=== PATIENT | female | born 1960 ===

== ENCOUNTER 2024-04-13 19:02 | Emergency (ER) | payer OTHER, SELFPAY ==
[2024-04-13] VITALS (16 sets, daily range): BP systolic 132–155; BP diastolic 49–96; PULSE 71–87; RESP 13–22; TEMP 36.2; O2SAT 94–100; BMI 49.7
--- NOTE | 2024-04-13 19:14 | CRLHL7_ITS ---
For Patients: As a result of the Century Cures Act, medical imaging exams and procedure reports are released immediately into your electronic medical record. You may view this report before your referring provider. If you have questions, please contact your health care provider. Indication: Trauma. Technique: Right knee, 2 views. Comparison: None. Findings/Impression: Bones: Alignment is normal. No displaced fractures or bone lesions. Joint spaces: Tricompartmental degenerative changes with narrowing of the medial femorotibial compartment. Soft tissues: Unremarkable. Dictated by Yonny Willis MD @ 04/13/2024 8:29:58 PM (Electronically Signed)
--- NOTE | 2024-04-13 19:14 | CRLHL7_ITS ---
For Patients: As a result of the Century Cures Act, medical imaging exams and procedure reports are released immediately into your electronic medical record. You may view this report before your referring provider. If you have questions, please contact your health care provider. INDICATION: Fall, deformity. TECHNIQUE: Right wrist 2 view. COMPARISON: None. FINDINGS: There is an acute comminuted impacted intra-articular fracture of the distal radius. Fracture fragments are mildly displaced with dorsal tilt of the radial articular surface. Radiocarpal alignment appears maintained without dislocation. Soft tissue swelling about the wrist. IMPRESSION: Acute comminuted impacted intra-articular fracture of the distal radius. Dictated by Marianne Carlos MD @ 04/13/2024 8:38:42 PM (Electronically Signed)
--- NOTE | 2024-04-13 19:35 | ED_ITS ---
HPI - General Adult General Date Seen: 04/13/24 Chief complaint: Extremity Pain/Injury, Upper Stated complaint: Fall, R arm injury Time Seen by Provider: 04/13/24 19:22 History of Present Illness HPI narrative: Pleasant 63-year-old female with history of arthritis in her knees, hypertension, but otherwise healthy she presents to the ER today by private car with her family for evaluation of injuries after she had a mechanical trip and fall. She was walking in a parking lot when she tripped over a speed bump and fell forward. She landed on her right knee and suffered an abrasion and bruise there and caught most of her weight on her outstretched right hand. She has a lot of right wrist pain and has a dorsal deformity. She has not hit her head. No loss of consciousness. No headache. No neck pain. No left-sided symptoms. No pain other than her right wrist and right knee. She is not anticoagulated. She does have significant swelling and deformity of her right wrist and she is concerned it is broken. She also has a little bit of evolving tingling in her the right middle finger (i.e. median nerve distribution). No pain in her elbow or shoulder. No rib pain or chest pain. No abdominal pain. No back pain. Related Data Home Medications ?Medication ?Instructions ?Recorded ?Confirmed furosemide PO DAILY 04/13/24 metoprolol succinate PO DAILY 04/13/24 Allergies Allergy/AdvReac Type Severity Reaction Status Date / Time morphine Allergy Intermediate itching Verified 04/13/24 19:15 amoxicillin [From Augmentin] AdvReac Intermediate Vomiting Verified 04/13/24 19:15 clavulanic acid AdvReac Intermediate Vomiting Verified 04/13/24 19:15 [From Augmentin] [facility] Social History Smoking Status: Never smoker How often do you have a drink containing alcohol: never AUDIT-C Alcohol total score: 0 Non-prescribed substance use: marijuana (any form) Exam Narrative: Exam Narrative: Constitutional: Appears well-developed and well-nourished. Alert. Conversant. Non toxic. HENT: Head: Atraumatic. No depressed skull fracture, Raccoon Eyes, Turner's sign, or hemotympanum. Face normal. TMs normal Nose: Nose normal. Mouth/Throat: Oral mucosa is clear and moist. no trismus. Pharynx normal. Tonsils symmetric. No tonsillar enlargement, erythema, or exudate. Eyes: Conjunctivae normal. EOM normal. Pupils equal, round, and reactive to light. No scleral icterus. Neck: Normal range of motion. Neck supple. No tracheal deviation present. Cardiovascular: Normal rate, regular rhythm. No gallop. No friction rub. No murmur heard. Symmetric radial artery pulses Pulmonary/Chest: Effort normal. No stridor. No respiratory distress. No wheezes. No rales. No rhonchi . No tenderness. Abdominal: Soft. Bowel sounds normal. No distension. No mass. No tenderness. No rebound. No guarding. Musculoskeletal: RUE: Clavicle, shoulder, proximal humerus, biceps, triceps, distal humerus are nontender. Elbow nontender. Proximal forearm nontender. She is guarding her right wrist and distal forearm where there is swelling and suggestive of a dorsal deformity. Range of motion and there forearm is limited by pain. Not able to flex or extend her elbow due to pain. Intact radial and ulnar an nerve motor and sensory function. She is able to slightly flex and extend her fingers. Subjective paresthesias her just starting to develop in her right middle finger (suspicious for possible median nerve neurapraxia) LUE: Normal range of motion. No tenderness. No deformity Pelvis is stable. Hips are nontender. RLE: Abrasion with swelling and ecchymosis over the right anterior knee. She is able to flex to about 90? and extend to almost complete extension. No crepitus. No deformity. Anterior knee tenderness. The femur and quadriceps and hamstring are nontender. Lower leg, ankle and foot are nontender. LLE: Normal range of motion. No edema. No tenderness. No deformity Lymph: No cervical adenopathy. Neurological: Alert and oriented to person, place, and time. Normal strength. CN II-VII intact. No sensory deficit. GCS eye subscore is 4. GCS verbal subscore is 5. GCS motor subscore is 6. Normal coordination Skin: Skin is warm and dry. No rash noted. No pallor. Normal capillary refill. Psychiatric: Normal mood. Normal affect. Const: Vital Signs, click to edit/add: Vital Signs - 24 hr 04/13/24 19:16 04/13/24 21:19 04/13/24 21:30 Temperature 97.1 F L Pulse Rate 75 75 Pulse Rate [Pulse Oximeter] 87 Respiratory Rate 18 Blood Pressure Blood Pressure [Le ft Forearm] 155/92 H Pulse Oximetry 95 96 94 Oxygen Delivery Me thod Room Air Oxygen Flow Rate 04/13/24 21:32 04/13/24 21:45 04/13/24 21:52 Temperature Pulse Rate 72 71 75 Pulse Rate [Pulse Oximeter] Respiratory Rate 13 Blood Pressure 132/49 L 144/79 H Blood Pressure [Le ft Forearm] Pulse Oximetry 94 94 97 Oxygen Delivery Me thod Oxygen Flow Rate 04/13/24 21:57 04/13/24 22:00 04/13/24 22:00 Temperature Pulse Rate 76 77 Pulse Rate [Pulse Oximeter] Respiratory Rate 16 16 Blood Pressure 147/68 H Blood Pressure [Le ft Forearm] Pulse Oximetry 98 98 Oxygen Delivery Me thod Nasal Cannula Oxygen Flow Rate 1 04/13/24 22:02 04/13/24 22:15 04/13/24 22:20 Temperature Pulse Rate 80 81 75 Pulse Rate [Pulse Oximeter] Respiratory Rate 13 17 22 Blood Pressure 136/72 Blood Pressure [Le ft Forearm] Pulse Oximetry 100 100 98 Oxygen Delivery Me thod Oxygen Flow Rate 04/13/24 22:24 04/13/24 22:27 04/13/24 22:30 Temperature Pulse Rate 75 78 73 Pulse Rate [Pulse Oximeter] Respiratory Rate 21 Blood Pressure 143/86 H 139/75 Blood Pressure [Le ft Forearm] Pulse Oximetry 99 96 96 Oxygen Delivery Me thod Oxygen Flow Rate 04/13/24 22:32 04/13/24 22:45 Temperature Pulse Rate 77 76 Pulse Rate [Pulse Oximeter] Respiratory Rate Blood Pressure 144/96 H Blood Pressure [Le ft Forearm] Pulse Oximetry 99 97 Oxygen Delivery Me thod Oxygen Flow Rate Course Vital Signs Vital signs: Initial Vital Signs Temperature 97.1 F L 04/13/24 19:16 Temperature Source Temporal Artery Scan 04/13/24 19:16 Pulse Rate 87 04/13/24 19:16 Respiratory Rate 18 04/13/24 19:16 Blood Pressure 155/92 H 04/13/24 19:16 Blood Pressure Mean 113 H 04/13/24 19:16 Blood Pressure Position Sitting 04/13/24 19:16 Pulse Oximetry 95 04/13/24 19:16 Oxygen Delivery Method Room Air 04/13/24 19:16 Vital Signs Temperature 97.1 F L 04/13/24 19:16 Pulse Rate 87 04/13/24 19:16 Respiratory Rate 18 04/13/24 19:16 Blood Pressure 155/92 H 04/13/24 19:16 Pulse Oximetry 95 04/13/24 19:16 Oxygen Delivery Method Room Air 04/13/24 19:16 Temperature 97.1 F L 04/13/24 19:16 Pulse Rate 76 04/13/24 22:45 Respiratory Rate 21 04/13/24 22:24 Blood Pressure 144/96 H 04/13/24 22:32 Pulse Oximetry 97 04/13/24 22:45 Oxygen Delivery Method Nasal Cannula 04/13/24 22:00 Oxygen Flow Rate 1 04/13/24 22:00 Medications Administered Medications: Discontinued Medications Generic Name Dose Route Start Last Admin Trade Name Franciscoq PRN Reason Stop Dose Admin Ketorolac Tromethamine 15 mg 04/13/24 19:39 04/13/24 20:02 Ketorolac 15 Mg/Ml Inj IVP 04/13/24 19:40 15 mg ONCE ONE Administration Ondansetron HCl 4 mg 04/13/24 20:33 04/13/24 20:40 Ondansetron 2 Mg/Ml Inj IVP 04/13/24 20:34 4 mg ONCE ONE Administration Medical Decision Making MDM Narrative Medical decision making narrative: Very pleasant 63-year-old female presenting to the ER today with her for evaluation of right wrist pain after mechanical trip and fall that occurred this evening. She also has some bruising and abrasion to her right knee. No other injuries from the fall. X-rays of the right knee are negative for any fracture dislocation. Exam is consistent with contusion and abrasion. Exam and x-rays of the right wrist confirm a comminuted, impacted, intra- articular fracture of the distal radius with about 30? of dorsal angulation. Associated with this she had tingling paresthesias in the middle finger suggesting a median nerve neurapraxia. Discussed with Orthopedics. They reviewed the images and the clinical presentation. Concern is that with a comminuted intra-articular fracture like this she will probably require ORIF. That cannot be done tonight. Orthopedics recommends that we perform procedural sedation for closed reduction should try to reduce the tension on the median nerve to resolve the paresthesia. If successful patient can follow-up in clinic tomorrow for recheck. As above sedation and reduction were performed with good improvement in alignment. She had temper hypoxia during the sedation but no other complication. No aspiration. No hypotension. She recovered well post sedation and is now feeling better. With improved alignment of the fracture fragments, the median nerve paresthesias have resolved. She is wiggling her fingers and has no ongoing numbness. Good distal cap refill. She is placed into a dorsal slab short-arm splint. Sling applied. She will follow-up tomorrow with the [facility] ortho clinic. Discussed fracture care, rest, ice, elevation. Discussed splint care keeping it dry, keeping it on. Precautions for return to the ER reviewed with any signs of worsening or uncontrolled pain, numbness or pallor in her fingers, getting the splint wet, displacement, or other concerns. She has significant side effects from all opiate analgesics so cannot have opiates. She has done well with tramadol in the past. Prescription for tramadol through [facility]-15 tablets. Imaging Data XR right wrist: Attestation: I have reviewed the pertinent imaging results. My impression: Dr. Gonzalez-acute comminuted, impacted distal radius fracture with intra- articular involvement. About 30? of dorsal angulation. Radiologist's impression: FINDINGS: There is an acute comminuted impacted intra-articular fracture of the distal radius. Fracture fragments are mildly displaced with dorsal tilt of the radial articular surface. Radiocarpal alignment appears maintained without dislocation. Soft tissue swelling about the wrist. IMPRESSION: Acute comminuted impacted intra-articular fracture of the distal radius. XR right knee: Attestation: I have reviewed the pertinent imaging results. My impression: Dr. Gonzalez-no fracture Radiologist's impression: Findings/Impression: Bones: Alignment is normal. No displaced fractures or bone lesions. Joint spaces: Tricompartmental degenerative changes with narrowing of the medial femorotibial compartment. Soft tissues: Unremarkable. X-ray right wrist post reduction: Attestation: I have reviewed the pertinent imaging results. My impression: Improved alignment and angulation of the fracture fragments of the distal radius. Discharge Plan Discharge Clinical Impression: Fracture of wrist Patient Disposition: Home, Self-Care Condition: Stable Instructions: Wrist Fracture in Adults (ED) Additional Instructions: Please follow up with the [facility] Orthopedic Clinic. You should receive a phone call from the orthopedic clinic tomorrow morning. If you do not receive a phone call by mid morning, call [phone] to arrange a follow-up visit. Keep your splint on and keep her splint dry until you see Ortho. Wear the sling when you are up and around keep your arm elevated at the level of your heart. Take the sling off on your sleeping. Keep your arm elevated on a pillow. Apply ice your broken wrist with an ice pack for 15 minutes every 3-4 hours. If you have worsening or uncontrolled pain, numbness or tingling in your hand pallor or duskiness of your fingers, or any other problems, please return to the ER right away. Use caution with tramadol because it can cause dizziness and drowsiness and can be addictive. Prescriptions: No Action metoprolol succinate PO DAILY furosemide PO DAILY Follow Up/Referrals: Bárbara Hartman MD [Primary Care Provider] - Stand Alone Forms: [employer] Info Instructions Procedures Orthopedic Fracture Reduction Right distal radius fracture: Written consent by: patient (And ) Time Out Performed: Yes Side: right Fracture location: radius Analgesia: procedural sedation Technique: direct manipulation Post Reduction X-rays Demonstrate: anatomical reduction Post-reduction neuro exam: other (Patient had median nerve paresthesias prior to the procedure. After reduction, median nerve paresthesias resolved.) Post-reduction vascular exam: intact Splint Applied: Yes Patient Tolerated Procedure: well Procedural Sedation Pre procedure diagnosis: Comminuted right distal radius fracture with median nerve paresthesias Post procedure diagnosis: Comminuted right distal radius fracture Written consent by: patient Verification/time out: correct patient Sedation provider same as procedural provider: No (Sedation was provided by Dr. Otilia Bush) Indication: fracture/dislocation reduction ASA Class: II Mallampati classification: III. soft palate and base of uvula visible Preparation: court monitor applied, pulse oximeter, capnometry used, supplemental O2 applied, reversal agents at bedside, suction/airway equipment at bedside and IV secured IV Propofol dose (mg): 200 (100 mg, 40 mg, 60 mg) Complications: hypoxia (Treated by increasing oxygen flow on nasal cannula) Interventions: oxygen applied
[2024-04-13] MEDS: KETOROLAC 15 MG/ML inj IVP (20:02)
[2024-04-13] MEDS: ONDANSETRON 2 MG/ML inj 4 MG IVP (20:40)
--- NOTE | 2024-04-13 21:58 | CRLHL7_ITS ---
For Patients: As a result of the Century Cures Act, medical imaging exams and procedure reports are released immediately into your electronic medical record. You may view this report before your referring provider. If you have questions, please contact your health care provider. Indication: Postreduction. Technique: Right wrist 2 views. Comparison: Right wrist radiographs from the same day. Findings/Impression: Interval splinting of the right wrist. Slightly improved alignment of the comminuted distal radial fracture status post reduction. The remainder of the exam is unchanged. Dictated by Rey Saxena MD @ 04/13/2024 10:43:30 PM (Electronically Signed)
== END 2024-04-13 23:15 | disposition home or self-care (01) ==
PROVIDERS: Emergency Provider Emergency Medicine; PCP General Practice
DX: S52.571A Other intraarticular fracture of lower end of right radius, initial encounter for closed fracture (principal); W01.0XXA Fall on same level from slipping, tripping and stumbling without subsequent striking against object, initial encounter
CPT/HCPCS: 25605; 73100; 73560; 96374; 96375; 99156; 99283; 99284; J1885; J2405

== ENCOUNTER 2024-04-21 09:40 | Day surgery (SDC) | payer OTHER, SELFPAY ==
[2024-04-21] VITALS (12 sets, daily range): BP systolic 140–180; BP diastolic 73–102; PULSE 59–70; RESP 14–16; TEMP 36–36.3; O2SAT 92–97; BMI 51.7
[2024-04-21] MEDS: LACTATED RINGERS 1000 ML 1,000 ML 100 ML IV ×2 (10:32→14:20)
[2024-04-21] MEDS: SODIUM CHLORIDE 0.9 % (FLUSH) 10 ML SYRINGE IVF (10:32)
--- NOTE | 2024-04-21 10:42 | P.ORPRC_ITS ---
Procedure Note Date of procedure: 04/21/24 Procedure: PREOPERATIVE DIAGNOSES: 1. Right distal radius fracture (intraarticular with comminution and dorsal angulation/displacement) POSTOPERATIVE DIAGNOSES: 1. Right distal radius fracture (intraarticular with comminution and dorsal a ngulation/displacement) NAME OF OPERATION: 1. Right distal radius open reduction with internal fixation of intraarticular fracture (3+ parts) SURGEON: Rao Bush MD TARE WORKER: Logan Bill P.A.-C. - An certified physician's assistant was critical for this case to aide in patient positioning, limb manipulation, tissue retraction, closure, and splinting. ANESTHESIA: General with axillary nerve block IMPLANTS: [employer] DVR Crosslock distal radius locking plate with 2.5 mm fully-threaded locking pegs, 2.0 mm smooth locking pegs, and 2.7mm nonlocking screws. TOURNIQUET: 73 minutes at 250 mmHg. INDICATIONS: The patient is a pleasant, 63-year-old female who sustained a right wrist injury after a fall. They had difficulty with use of the extremity and deformity. Workup included xrays which revealed an unstable distal radius fracture. Given these findings, surgery was recommended to improve fracture alignment stabilize the fracture. Prior to surgery the risks and benefits of the procedure were discussed with patient all questions were answered and informed consent was obtained. FINDINGS: Closed, displaced, intra-articular distal radius fracture. PROCEDURE: Following a thorough discussion of risks, benefits, and alternatives, consent was obtained and the operative extremity was marked. An axillary nerve block was performed by anesthesia staff. The patient was then brought to the operating room and placed supine on the operating table. Monitored anesthesia care was provided, and patient was given 3 g IV Ancef preoperatively for prophylaxis. She was later converted to general anesthesia with LMA. The operative extremity was prepped and draped in usual sterile fashion. A surgical time-out was performed confirming patient identity surgical site and surgical procedure. The operative extremity was exsanguinated and the tourniquet inflated to 250 mmHg. A longitudinal incision was made overlying the FCR tendon. Sharp incision through skin and subcutaneous tissue allowed identification of the FCR tendon. The superficial sheath was sharply divided, the tendon retracted ulnarly, and the deep fascial sheath also released. The FPL was retracted ulnarly and the pronator quadratus was sharply released from the radial border of the radius and subperiosteally elevated. The fracture was encountered and cleared of interposed periosteum / fracture hematoma. A reduction was performed and the appropriate plate selected. The plate was provisionally fixed distally with K-wires. Fluoroscopic imaging confirmed good placement of the plate and satisfactory reduction of the intra-articular fragments. The plate was then fixed distally with a combination of fully-threaded locking pegs and smooth locking pegs. Fluoroscopic imaging confirmed good placement of the pegs in the subchondral bone of the distal radius. Once all of the distal peg holes had been filled, the plate was used to reduce the distal fragment to the proximal fragment, restoring volar tilt. The proximal oblong hole was filled with a nonlocking screw securing the plate to the proximal fragment. Additional proximal fixation was provided with an additional nonlocking shaft screw, and 2 divergent threaded locking pegs. fixation followed by multiple distal locking pegs being careful to keep these in subchondral bone and extraarticular. Fluoroscopic imaging was performed and 2 of the distal locking pegs were long. These were subsequently exchanged for shorter locking pegs. Final fluoroscopic imaging in multiple planes confirmed satisfactory reduction of the fracture fragments with good placement of the plate and screws. At this stage, the wound was thoroughly irrigated with normal saline. Pronator quadratus was not repairable. Tourniquet was released and hemostasis was achi eved. Wound was again irrigated with normal saline. Subcutaneous tissues were injected with 10 mL of 0.25% bupivacaine. Skin was then closed with 3-0 Vicryl inverted interrupted subcutaneous stitches and a running 4-0 Monocryl subcuticular stitch and Dermabond. Sterile dressings were applied followed by short-arm volar splint. The patient was awoken from anesthesia and transferred to PACU in stable condition. PLAN: 1. Elevate operative extremity. 2. Ice, acetaminophen or ibuprofen PRN. 3. Tramadol or oxycodone as needed for more severe pain 4. Follow up in Orthopedic Clinic in 10-14 days for wound check and splint removal.
--- NOTE | 2024-04-21 10:42 | W.PM.H&PU ---
History & Physical Update History & Physical Update H&P Reviewed and patient assessed: No changes noted
[2024-04-21] MEDS: MIDAZOLAM HCL 1 MG/ML inj IVP (10:48)
[2024-04-21] MEDS: fentaNYL 100 MCG/2 ML inj IVP (10:48)
--- NOTE | 2024-04-21 11:00 | CRLHL7_ITS ---
For Patients: As a result of the Century Cures Act, medical imaging exams and procedure reports are released immediately into your electronic medical record. You may view this report before your referring provider. If you have questions, please contact your health care provider. INDICATION: Distal radius ORIF. TECHNIQUE: Four spot images of the wrist submitted. 1.70 mGy fluoroscopy dose. FINDINGS: Right distal radius ORIF. Dictated by Don Mcgovern MD @ 04/21/2024 2:06:25 PM (Electronically Signed)
--- NOTE | 2024-04-21 11:06 | SUR.PREOP ---
TIME?OUT:?1048 PT/RN/MDA?VERIFICATION?OF?SURGICAL?SITE,?PROCEDURE,?AND?CONSENT OBTAINED?PRIOR?TO?INVASIVE?PROCEDURE.
--- NOTE | 2024-04-21 11:18 | P.NB_ITS ---
Nerve Block Nerve Block Time Seen by Provider: 11:00 Date Seen: 04/21/24 Type of block requested by surgeon for post-operative analgesia: axillary Time out performed: Yes Verification of patient name: Yes Verification of date of : Yes Site marking: site marked Name of person performing procedure: Carlos Vikki Continuous monitoring Was continuous monitoring of O2 sat, B/P, sales and marketing executive, recorded every 15 minutes?: Yes Procedure Checklist: sterile prep, needles and gloves Ultrasound guided. Images saved: Yes Medications given in 5ml increments after negative aspiration: Ropivicaine %: 0.5 mL: 20 Needle gauge: 20 Decadron (mg): 10 Precedex (mcg): 25 Patient tolerated procedure well: Yes Additional comments: Injected in 5mL increments after negative aspiration Block Charges Block Charge (with Pro Fee): Axillary Nerve Use of Ultrasound Machine for Block: Yes- US Guidance/pain block
[2024-04-21] MEDS: CEFAZOLIN 2 GM INJ IVP (11:23)
--- NOTE | 2024-04-21 12:41 | W.ANESCHARGE ---
Anesthesia Charges Start Date/Time Anesthesia Start Date: 04/21/24 Anesthesia Start Time: 11:03 Stop Date/Time Anesthesia Stop Date: 04/21/24
[2024-04-21] MEDS: BUPIVACAINE 0.25% 30 ML INJECTION (12:50)
--- NOTE | 2024-04-21 13:32 | W.ANESCHARGE ---
Anesthesia Charges Start Date/Time Anesthesia Start Date: 04/21/24 Anesthesia Start Time: 11:03 Stop Date/Time Anesthesia Stop Date: 04/21/24 Anesthesia Stop Time: 13:27
[2024-04-21] MEDS: fentaNYL 100 MCG/2 ML inj 50 MCG IVP (13:41)
--- NOTE | 2024-04-21 14:21 | SUR.PHASEII ---
giving fluid to try to help pt wake up a bit and breathe better unassisted
== END 2024-04-21 15:06 | disposition home or self-care (01) ==
PROVIDERS: PCP General Practice; Visit Provider Orthopaedic Surgery
PROC: (CPT 25575; principal; 2024-04-21 11:00)
DX: S52.571A Other intraarticular fracture of lower end of right radius, initial encounter for closed fracture (principal); G89.18 Other acute postprocedural pain
CPT/HCPCS: 25609; 01830; 64417; 73110; 76000; 76942; A4580; C1713; J0665; J0690; J1100; J2250; J2405; J2704; J2795; J3010; J7120

== ENCOUNTER 2024-07-16 08:15 | Outpatient (RCR) | payer OTHER, SELFPAY | END 2024-10-20 13:51 | disposition home or self-care (01) | PROVIDERS: PCP General Practice; Visit Provider Physician Assistant Surgical | DX: Z98.890 Other specified postprocedural states (principal); M25.631 Stiffness of right wrist, not elsewhere classified; R53.1 Weakness; Z51.89 Encounter for other specified aftercare | CPT/HCPCS: 97110; 97140; 97165; X5282 ==